=== PATIENT | female | born 1940 ===

== ENCOUNTER → 2018-09-18 | Outpatient (CLI) | payer OTHER ==
--- NOTE | 2018-09-19 08:56 | KCIC ---
Bilateral digital screening mammograms with 3-D tomosynthesis: Reason for examination: Routine screening. Comparison is made to previous studies dated 09/11/2017 and 09/26/2016. Bilateral mammograms in CC and oblique projections were obtained with 2-D imaging and 3-D tomosynthesis imaging on a Siemens Inspiration unit and reviewed on the workstation. Interpretation was made with the benefit of CAD. The skin and nipples show no abnormalities. No abnormal axillary lymph nodes are seen. The breast parenchyma shows scattered fatty and fibroglandular density. (Breast density: Category B.) There are no dominant masses, suspicious calcifications or architectural distortion. Impression: No evidence of malignancy. Recommend routine screening. BI-RAD Category 1: Negative. "Our facility is accredited by the [employer] Mammography [employer]." This patient's information has been entered into a reminder system for the patient to be notified with the results of her examination and a target date for the next mammogram. Electronically signed by: Kay Castellanos MD (09/19/2018 8:53 AM) [id number]
== END | disposition home or self-care (01) ==
LOC: KCIC MAMMO 10:31
PROVIDERS: ATTEND Family Medicine
DX: Z12.31 Encounter for screening mammogram for malignant neoplasm of breast (principal)
CPT/HCPCS: 77063; 77067

== ENCOUNTER → 2019-09-21 | Outpatient (CLI) | payer MEDICARE, OTHER ==
--- NOTE | 2019-09-21 13:20 | KCIC ---
Bilateral digital screening mammograms with 3-D tomosynthesis: Reason for examination: Routine screening. Comparison is made to previous studies dated back to 09/26/2016. Bilateral mammograms in CC and oblique projections were obtained with 2-D imaging and 3-D tomosynthesis imaging on a Siemens Inspiration unit and reviewed on the workstation. Interpretation was made with the benefit of CAD. The skin and nipples show no abnormalities. No abnormal axillary lymph nodes are seen. The breast parenchyma shows scattered fatty and fibroglandular density. (Breast density: Category B.) There appear to be small nodules present at the 5:30 B position centrally in the left breast, at the 7:00 C position of the right breast and at the 4:00 B position of the right breast. Further evaluation with ultrasound is recommended. There are no suspicious calcifications seen. Impression: Small nodules at the 7:00 C position of the right breast, 4:00 B position of the right breast and 5:30 B position of the left breast. Recommend further evaluation with ultrasound. BI-RADS Category 0: Incomplete. Needs additional imaging evaluation. "Our facility is accredited by the [employer] Mammography [employer]." This patient's information has been entered into a reminder system for the patient to be notified with the results of her examination and a target date for the next mammogram. Electronically signed by: Kay Castellanos MD (09/21/2019 1:18 PM) [id number]
== END | disposition home or self-care (01) ==
LOC: KCIC MAMMO 09:45
PROVIDERS: ATTEND Family Medicine
DX: Z12.31 Encounter for screening mammogram for malignant neoplasm of breast (principal); N64.89 Other specified disorders of breast
CPT/HCPCS: 77063; 77067

== ENCOUNTER → 2019-10-28 | Outpatient (CLI) | payer MEDICARE ==
--- NOTE | 2019-10-28 14:32 | KCIC ---
EXAM: Bilateral breast sonogram. HISTORY: 79-year-old female presents for evaluation of nodularity within both breasts demonstrated on a mammogram dated 09/21/2019. TECHNIQUE: Sonographic imaging of both breasts including all 4 quadrants and retroareolar regions was performed. COMPARISON: 09/21/2019. FINDINGS: Sonographic imaging of the right breast demonstrates an oval hypoechoic lesion with internal echoes at the 4:00 position 4 cm from the nipple measuring 3.8 mm, likely a complicated cyst or fibroadenoma. This demonstrates no suspicious blood flow or posterior shadowing. This likely corresponds with the mammographic finding of concern based on size and location. There are ectatic ducts within the subareolar aspect of the right breast. No intraductal lesion is seen. Sonographic imaging of the left breast demonstrates an oval hypoechoic lesion measuring approximately 6.0 mm at the 5:30 position 1 cm from the nipple, the appearance of which favors a fibrocystic or fibroadenomatoid lesion. No additional lesion is seen. IMPRESSION: 1. Suspected 3.8 mm complicated cyst or fibroadenoma at the 4:00 position of the right breast and 6.0 mm fibrocystic or fibroadenomatoid lesion at the 5:30 position of the left breast. The finding at the 4:00 position may correspond with nodular density demonstrated mammographically. The additional areas of nodularity within both breasts on the prior screening mammogram demonstrates no clear sonographic correlate. The absence of a sonographic correlate favors benignity. 2. BI-RADS Category 3: Probably benign finding(s). Short term follow up with a bilateral diagnostic mammogram and sonogram in 6 months is recommended to confirm both mammographic and sonographic stability. Electronically signed by: Jada Bolanos MD (10/28/2019 2:29 PM) [email or web address]
== END | disposition home or self-care (01) ==
LOC: KCIC US 13:01
PROVIDERS: ATTEND Family Medicine
DX: R92.8 Other abnormal and inconclusive findings on diagnostic imaging of breast (principal)
CPT/HCPCS: 76641